=== PATIENT | female | born 1930 | race Caucasian/White ===

== ENCOUNTER 2016-11-20 08:21 | Emergency (ER) | payer MEDICARE, OTHER ==
[~2016-11-20] VITALS: Ht 157.5 cm; Wt 45.4 kg
[~2016-11-20 08:21] MED LIST: ASPI81TA2 PO; ATOR40TA PO; DIGO125T PO; ESTR1.5T5 PO; LEVO50TA8 PO; METO50TA7 PO; POTA20LI4 PO
[2016-11-20 09:41] VITALS: BP 117/72
== END 2016-11-20 09:42 | disposition home or self-care (01) ==
LOC: ER 08:23
DX: S09.90XA Unspecified injury of head, initial encounter (principal); S70.01XA Contusion of right hip, initial encounter; S00.03XA Contusion of scalp, initial encounter; E78.00 Pure hypercholesterolemia, unspecified; I10 Essential (primary) hypertension; R51 Headache; Z79.82 Long term (current) use of aspirin; Z95.0 Presence of cardiac pacemaker; W01.198A Fall on same level from slipping, tripping and stumbling with subsequent striking against other object, initial encounter; Y93.89 Activity, other specified; Y92.89 Other specified places as the place of occurrence of the external cause; Y99.9 Unspecified external cause status
CPT/HCPCS: 70450; 72125; 73502; 99284; A4606; 73510-TC; Z7610

== ENCOUNTER 2017-10-07 15:08 | Inpatient (IN) | payer MEDICARE, OTHER ==
[~2017-10-07] VITALS: Ht 167.6 cm; Wt 48.1 kg
--- NOTE | 2017-10-07 15:20 | NUR ---
BBRA 860 FROM HOME TRIP AND FALL BACKWARD AND HIT THE BACK OF THE HEAD NOTED WITH LACERATION WITH ACTIVE MINIMAL BLEEDING. NOTED L ELBOW ABRASIONS. PT AAOX3. SEEN BY MD FOR EVAL. VSS. SAFETY AND COMFORT MEASURES PROVIDED. WILL MONITOR.
--- NOTE | 2017-10-07 15:50 | NUR ---
IV ACCESS STARTED. BLOOD DRAWN FOR LABS.
[2017-10-07 16:05] LABS: BASOPHILS # (AUTO) 0.2 /CMM (0.0-0.2); EOSINOPHILS # (AUTO) 0.1 /CMM (0.0-0.7); EOSINOPHILS % (AUTO) 0.8 % (0.0-6.0); HEMOGLOBIN 10.7 g/dL (11.5-14.8); LYMPHOCYTES # (AUTO) 0.7 /CMM (0.8-4.8); MEAN CORPUSCULAR HGB CONC 34 g/dl (31.0-36.0); RED BLOOD CELL COUNT(AUTO) 3.45 MIL/uL (4.0-5.2)
[2017-10-07 16:09] LABS: BASOPHILS % (AUTO) 2.6 % (0.0-2.0); HEMATOCRIT 32 % (33-45); LYMPHOCYTES % (AUTO) 10.5 % (20.0-44.0); MEAN CORPUSCULAR HEMOGLOBIN 31 PG (26.0-33.0); MEAN CORPUSCULAR VOLUME 93 fL (82-100); MONOCYTES # (AUTO) 0.6 /CMM (0.1-1.30); NEUTROPHILS # (AUTO) 5.4 /CMM (1.8-8.9); NEUTROPHILS % (AUTO) 78.1 % (43.0-81.0); PLATELET COUNT (AUTO) 66 /CMM (150-450); RDW COEFFICIENT OF VARIATION 15.9 (11.5-15.0)
[2017-10-07 16:15] LABS: CALCIUM, SERUM 9.2 mg/dL (8.5-10.1); CARBON DIOXIDE 30 mmol/L (21-32); CHLORIDE 103 mmol/L (98-107); CREATININE 0.9 mg/dL (0.6-1.3); GLUCOSE 113 mg/dL (74-106); POTASSIUM 4.3 mmol/L (3.5-5.1); SODIUM SERUM 137 mmol/L (136-145); UREA NITROGEN, BLOOD 19 mg/dL (7-18)
[2017-10-07 16:20] LABS: INR 0.95 (0.87-1.13); PROTHROMBIN TIME 9.9 SECS (9.5-12.7)
[2017-10-07 16:27] LABS: ALANINE AMINOTRANSFERASE 29 U/L (12-78); ALBUMIN 3.5 g/dL (3.4-5.0); ALKALINE PHOSPHATASE 66 U/L (46-116); ASPARTATE AMINOTRANSFERASE 38 U/L (15-37); B-TYPE NATRIURETIC PEPTIDE 5453 PG/ML (0-125); BILIRUBIN,DIRECT 0.3 mg/dL (0.0-0.2); BILIRUBIN,TOTAL 0.8 mg/dL (0.2-1.0); TOTAL PROTEIN, SERUM 6.3 g/dL (6.4-8.2)
--- NOTE | 2017-10-07 17:26 | NUR ---
[facility]
[2017-10-07] MEDS ORDERED: HYDROMORPHONE INJ 2 MG/ML DISP.SYRIN ONE (17:46)
[2017-10-07] MEDS ORDERED: ASPI325T2 PO (17:54)
[2017-10-07] MEDS ORDERED: [UNRECOGNIZED DRUG - CODE] PO (17:54)
[2017-10-07] MEDS ORDERED: CHOL100044 PO (17:54)
[2017-10-07] MEDS ORDERED: HYDROMORPHONE 1 MG/1 ML DISP.SYRIN IV ONE (18:00)
[2017-10-07] MEDS ORDERED: MAGNESIUM HYDROXIDE 30 ML UDC PO PRN (18:00)
[2017-10-07] MEDS ORDERED: ZOLPIDEM TARTRATE 5 MG TABLET PO PRN (18:00)
[2017-10-07] MEDS ORDERED: Z GUARD REMEDY 2 OZ OINT TP PRN (18:00)
[2017-10-07] MEDS ORDERED: ONDANSETRON HCL/PF 4 MG/2 ML VIAL IVP PRN (18:00)
[2017-10-07] MEDS ORDERED: ACETAMINOPHEN 325 MG TABLET PO PRN (18:00)
[2017-10-07] MEDS ORDERED: MAG HYDROX/AL HYDROX/SIMETH 30 ML UDC PO PRN (18:00)
[2017-10-07] MEDS ORDERED: ALBUTEROL FS 2.5 MG/3 ML VIAL.NEB NEB PRN (19:00)
[2017-10-07] MEDS ORDERED: HYDROMORPHONE 1 MG/1 ML DISP.SYRIN IV PRN (19:00)
[2017-10-07 19:05] LABS: BAND % (MANUAL) 5 % (0.0-5.0); LYMPHOCYTES % (MANUAL) 9 % (16-48); MONOCYTES % (MANUAL) 8 % (0-11.0); NEUTROPHILS % (MANUAL) 78 (42-76)
--- NOTE | 2017-10-07 20:12 | NUR ---
REPORT GIVEN TO YUSEF MONTOYA FOR ARTEMIO.
[2017-10-07 20:25] VITALS: BP 129/56
[2017-10-07 20:30] VITALS: BP 129/56
--- NOTE | 2017-10-07 20:30 | NUR ---
TELE/RN OPENING NOTES PT RECEIVED ON UNIT FROM ER VIA GUR[facility]AN[facility]. PLACED ON 2L O2 VIA NC, BREATHING EVEN AND UNLABORED. NO S/S OF DISTRESS NOTED. IV TO LAC DISLODGED. WILL RE-INSERT. A/OX2-3, ORIENTED PT TO ROOM AND CALL LIGHT. SIDE RAILS UPX2. BED IN LOW/LOCKED POSITION WITH CALL LIGHT IN REACH AND SIDE RAILS UPX2. WILL CONTINUE TO MONITOR Addendum: 10/07/17 at 2300 by ROLANDA GUNDERSON RN PLACED ON MIXER BLENDER, A-PACING WITH HR 70
[2017-10-07] MEDS ORDERED: CHOLECALCIFEROL 1,000 UNIT TABLET (VIT D3) ONE (21:34)
[2017-10-07] MEDS ORDERED: ASPIRIN 81 MG TAB.CHEW ONE (21:34)
--- NOTE | 2017-10-07 21:40 | NUR ---
TELE/RN NOTES SPOKE TO DR. BENÍTEZ, REGARDING CLARIFICATION OF ADMITTING ORDERS FROM DR. KELSEY. ASPIRIN 81MG AND ASPIRIN 325MG ORDERED FOR TONIGHT. DR. BENÍTEZ NOTIFIED OF ADMITTING DIAGNOSIS AND ORDERED TO ONLY GIVE ASPIRIN 81MG. NOTED AND CARRIED OUT.
[2017-10-07] MEDS ORDERED: ASPIRIN 325 MG TABLET PO SCH (22:00)
[2017-10-07] MEDS: CHOLECALCIFEROL 1,000 UNIT TABLET (VIT D3) PO SCH (22:22)
[2017-10-07] MEDS: ASPIRIN 81 MG TAB.CHEW PO SCH (22:22)
[2017-10-07] MEDS ORDERED: HYDROCODONE/APAP 5/325MG 1 EACH TABLET ONE (22:36)
[2017-10-07] MEDS: HYDROCODONE/APAP 5/325MG 1 EACH TABLET PO PRN (22:53)
[2017-10-08] VITALS (7 sets, daily range): BP systolic 90–124; BP diastolic 33–54
[2017-10-08 06:49] LABS: BASOPHILS % (AUTO) 0.9 % (0.0-2.0); EOSINOPHILS # (AUTO) 0.1 /CMM (0.0-0.7); EOSINOPHILS % (AUTO) 2.1 % (0.0-6.0); HEMATOCRIT 27 % (33-45); HEMOGLOBIN 8.6 g/dL (11.5-14.8); LYMPHOCYTES # (AUTO) 0.8 /CMM (0.8-4.8); LYMPHOCYTES % (AUTO) 20.2 % (20.0-44.0); MEAN CORPUSCULAR HEMOGLOBIN 30 PG (26.0-33.0); MEAN CORPUSCULAR HGB CONC 32 g/dl (31.0-36.0); MEAN CORPUSCULAR VOLUME 93 fL (82-100); MONOCYTES # (AUTO) 0.4 /CMM (0.1-1.30); MONOCYTES % (AUTO) 10.8 % (2.0-12.0); NEUTROPHILS # (AUTO) 2.6 /CMM (1.8-8.9); PLATELET COUNT (AUTO) 62 /CMM (150-450); RDW COEFFICIENT OF VARIATION 17.1 (11.5-15.0); RED BLOOD CELL COUNT(AUTO) 2.84 MIL/uL (4.0-5.2); WHITE BLOOD COUNT (AUTO) 3.9 K/uL (4.3-11.0)
--- NOTE | 2017-10-08 06:53 | NUR ---
TELE/RN CLOSING NOTES PT ASLEEP, EASILY AROUSABLE TO NAME. ON 2L O2 VIA NC, BREATHING EVEN AND UNLABORED. DENIES SOB OR PAIN. A/OX2-3. LCW PACEMAKER NOTED. ON TELE MONITOR SHOWING SR AT 60. IV TO RIGHT WRIST PATENT AND INTACT. BED IN LOW/LOCKED POSITION WITH CALL LIGHT IN REACH. SIDE RAILS UPX2. DAY SHIFT RN TO FOLLOW UP WITH MD TO CLARIFY ORDERS FOR ASA 81MG IN AM AND ASA 325MG IN PM. LAST NIGHT, PER DR. BENÍTEZ, ONLY TO GIVE ASA 81MG. OTHERWISE MADE PT COMFORTABLE DURING SHIFT. ALL NEEDS MET AND ATTENDED. TURNED/REPOSITIONED Q2H AND HEELS OFFLOADED. WILL ENDORSE TO AM SHIFT ARTEMIO.
[2017-10-08 07:11] LABS: CALCIUM, SERUM 8.5 mg/dL (8.5-10.1); CARBON DIOXIDE 27 mmol/L (21-32); CHLORIDE 106 mmol/L (98-107); CREATININE 0.7 mg/dL (0.6-1.3); GLUCOSE 89 mg/dL (74-106); MAGNESIUM 1.8 mg/dL (1.8-2.4); PHOSPHORUS 3.4 mg/dL (2.5-4.9); POTASSIUM 4.3 mmol/L (3.5-5.1); SODIUM SERUM 140 mmol/L (136-145); UREA NITROGEN, BLOOD 18 mg/dL (7-18)
[2017-10-08 07:12] LABS: CHOLESTEROL 100 mg/dL (<200); HDL CHOLESTEROL 75 mg/dL (40-60); LDL 28 mg/dL (0-99); TRIGLYCERIDES 35 mg/dL (30-150)
[2017-10-08 07:25] LABS: IRON, SERUM 32 ug/dl (50-175); TOTAL IRON BINDING CAPACITY 307 ug/dl (250-450)
--- NOTE | 2017-10-08 07:40 | NUR ---
EMERGENCY NURSE OPENING RECEIVED PATIENT A/XO4 DENIES SOB, DIFFICULTY BREATHING OR PAIN. PATIENT APPEARS STABLE. TELE NSR 70'S WITH SOME AV PACING. PATIENT REQUESTED IVF TO BE REMOVED FOR MORNING HYGIENE. PATIENT CURRENTLY ON 2LPM NC, WILL TITRATE TOLERATED. PATIENT STATES NO NEEDS AT THIS TIME. WILL ROUND Q2H OR LESS PER NEEDS Addendum: 10/08/17 at 0807 by JESSICA GARCIA RN INCORRECT PATIENT.
--- NOTE | 2017-10-08 07:40 | NUR ---
SENIOR PRODUCT INTEGRITY ENGINEER NOTES PATIENT AWAKE IN BED STATES SLIGHT PAIN TO SACRUM. WILL MONITOR BP AND ADMINISTER PAIN MEDICATIONS TOLERATED. PATIENT NEEDS IN REACH, STATES NO OTHER NEEDS AT THIS TIME. NO SOB, DIFFICULTY BREATHING. BILAT LEGS ELEVATED. PATIENT BED LOWERED, LOCKED, RAILS UPX3 FOR SAFETY AND WILL ROUND Q2H OR LESS PER NEEDS. BED ALARM ON. TELE NSR WITH SOME AV PACING
[2017-10-08] MEDS: LEVOTHYROXINE SODIUM 50 MCG TABLET PO SCH (08:46)
[2017-10-08] MEDS: ATORVASTATIN 40 MG TABLET PO SCH (08:46)
[2017-10-08] MEDS: DIGOXIN 0.125 MG TABLET PO SCH (08:47)
[2017-10-08] MEDS: ASPIRIN 81 MG TAB.CHEW PO SCH (08:48)
--- NOTE | 2017-10-08 08:49 | NUR ---
SUPPLEMENTAL MANAGER NOTES PATIENT REFUSING ASA STATES SHE TAKES 325 AT NIGHT. WILL F/U WITH
[2017-10-08] MEDS: METOPROLOL SUCCINATE 50 MG TAB.SR.24H PO SCH (08:50)
--- NOTE | 2017-10-08 08:52 | NUR ---
DIVORCE MEDIATOR NOTES PATIENT AWARE WE DO NOT HAVE ESTROPIPATE AND IF SHE WANTS CONTINUED SHE WILL HAVE TO PROVIDE. PATIENT AWARE
[2017-10-08 10:40] LABS: BAND % (MANUAL) 8 % (0.0-5.0); EOSINOPHILS % (MANUAL) 3 % (0-4); LYMPHOCYTES % (MANUAL) 24 % (16-48); MONOCYTES % (MANUAL) 12 % (0-11.0); NEUTROPHILS % (MANUAL) 53 (42-76)
[2017-10-08 12:14] LABS: THYROID STIMULATING HORMONE 1.92 uIU/mL (0.358-3.74)
[2017-10-08] MEDS: IV NS 0.9% 1,000 ML IV PRN (12:16)
[2017-10-08] MEDS: SOD FERRIC GLUC 125 MG in IV NS 0.9% 100 ML IV SCH (15:00)
--- NOTE | 2017-10-08 19:05 | NUR ---
CLAIM REVIEW MEDICAL DIRECTOR NOTES BLADDER SCAN COMPLETE PATIENT VERY LITTLE URINE OUTPUT AND TENDER ABDOMEN ON PALPATION. FIRM ABDOMEN. PATIENT SHOWING OVER 900ML IN BLADDER. MESSAGE TO DR KELSEY FOR MALIN CATH ORDER
--- NOTE | 2017-10-08 19:16 | NUR ---
JUNIOR MARKETING ASSOCIATE NOTES MESSAGE TO PUBLIC WORKS TECHNICIAN MD BENÍTEZ FOR [facility]
--- NOTE | 2017-10-08 19:35 | NUR ---
telephone order dispatcher closing notes Patient stated that she urinated. Bladder scan showed 800 ml. Per doctor Cleo insert kumar catheter. All due meds given. All needs are met
--- NOTE | 2017-10-08 19:41 | NUR ---
telecom assistant general note Patient stated that she has laceration on her head. 2 RN's assessed her head, no laceration, redness noted.
[2017-10-08] MEDS ORDERED: LACTOSE-FREE FOOD 237 ML LIQUID PO SCH (20:00)
--- NOTE | 2017-10-08 20:00 | NUR ---
EMERGENCY MEDICAL SERVICES COORDINATOR NOTES, PATIENT IN BED ALERT AND ORIENTED ABLE TO COMMUNICATE NEEDS AND CONCERNS, EXPLAIN TO PATIENT THAT SHE HAS A NEW ORDER FOR INSERT MALIN CATERER DUE TO THE POOR URINE OUTPUT, PATIENT VERBALIZED UNDERSTANDING, UPON ASSESSMENT DONE PATIENT NOTED ONE DIAPER WET, DENIES PAIN WHILE PALPATION OF BLADDER, SLIGHTLY DISTENTION NOTED. AFTER EXPLANATION AND EDMOND CARE, PROVIDED, USING ASEPTIC TECHNIQUE MALIN CATHETER 16F AND INSERTED, UPON INSERTION AND CONTINUOUS DRAINING 400ML WAS OBTAINED. URINE NOTED DARK YELLOW, NO HEMATURIA NOTED AT THIS TIME, SOME SEDIMENTATION NOTED, PATIENT TOLERATED PROCEDURE WELL, DENIES PAIN, WILL CONTINUE TO MONITOR CLOSELY, PLACE BED LOCKED AND IN LOWEST POSITION, CALL LIGHT W/I REACH.
[2017-10-08] MEDS: VITAMIN E 400 UNIT CAPSULE PO SCH (21:12)
[2017-10-08] MEDS: CHOLECALCIFEROL 1,000 UNIT TABLET (VIT D3) PO SCH (21:13)
[2017-10-08] MEDS: HYDROCODONE/APAP 5/325MG 1 EACH TABLET PO PRN (22:58)
[2017-10-09 04:00] VITALS: BP 114/40
[2017-10-09] MEDS: IV NS 0.9% 1,000 ML IV PRN ×2 (04:48→20:46)
[2017-10-09 07:02] LABS: BASOPHILS # (AUTO) 0.1 /CMM (0.0-0.2); BASOPHILS % (AUTO) 1.4 % (0.0-2.0); EOSINOPHILS # (AUTO) 0.1 /CMM (0.0-0.7); EOSINOPHILS % (AUTO) 1.6 % (0.0-6.0); HEMATOCRIT 25 % (33-45); HEMOGLOBIN 8.3 g/dL (11.5-14.8); LYMPHOCYTES # (AUTO) 0.8 /CMM (0.8-4.8); LYMPHOCYTES % (AUTO) 20.7 % (20.0-44.0); MEAN CORPUSCULAR HEMOGLOBIN 31 PG (26.0-33.0); MEAN CORPUSCULAR HGB CONC 33 g/dl (31.0-36.0); MEAN CORPUSCULAR VOLUME 93 fL (82-100); MONOCYTES # (AUTO) 0.6 /CMM (0.1-1.30); MONOCYTES % (AUTO) 13.7 % (2.0-12.0); NEUTROPHILS # (AUTO) 2.5 /CMM (1.8-8.9); NEUTROPHILS % (AUTO) 62.6 % (43.0-81.0); PLATELET COUNT (AUTO) 54 /CMM (150-450); RDW COEFFICIENT OF VARIATION 17.2 (11.5-15.0); RED BLOOD CELL COUNT(AUTO) 2.68 MIL/uL (4.0-5.2)
[2017-10-09 07:23] LABS: ALANINE AMINOTRANSFERASE 18 U/L (12-78); ALBUMIN 2.5 g/dL (3.4-5.0); ALKALINE PHOSPHATASE 43 U/L (46-116); ASPARTATE AMINOTRANSFERASE 26 U/L (15-37); BILIRUBIN,TOTAL 0.9 mg/dL (0.2-1.0); CALCIUM, SERUM 8.4 mg/dL (8.5-10.1); CARBON DIOXIDE 29 mmol/L (21-32); CHLORIDE 106 mmol/L (98-107); CREATININE 0.9 mg/dL (0.6-1.3); GLUCOSE 84 mg/dL (74-106); MAGNESIUM 1.8 mg/dL (1.8-2.4); PHOSPHORUS 3.3 mg/dL (2.5-4.9); POTASSIUM 3.7 mmol/L (3.5-5.1); SODIUM SERUM 140 mmol/L (136-145); TOTAL PROTEIN, SERUM 4.7 g/dL (6.4-8.2); TROPONIN I 0.083 ng/mL (0.00-0.056); UREA NITROGEN, BLOOD 14 mg/dL (7-18)
--- NOTE | 2017-10-09 07:37 | NUR ---
BRASS BURNISHER NOTE RECEIVED PATIENT IN THE BED, ASLEEP. PATIENT IS RESTING COMFORTABLY. NO S/S OF DISTRESS NOTED. WILL CONTINUE TO MONITOR
[2017-10-09 08:00] VITALS: BP 138/55
[2017-10-09] MEDS: LEVOTHYROXINE SODIUM 50 MCG TABLET PO SCH (08:01)
[2017-10-09] MEDS: DIGOXIN 0.125 MG TABLET PO SCH (08:11)
[2017-10-09] MEDS: ATORVASTATIN 40 MG TABLET PO SCH (08:11)
[2017-10-09] MEDS: ASPIRIN 81 MG TAB.CHEW PO SCH (08:12)
[2017-10-09] MEDS: METOPROLOL SUCCINATE 50 MG TAB.SR.24H PO SCH (08:52)
--- NOTE | 2017-10-09 09:11 | NUR ---
NUCLEAR REACTOR ENGINEER NOTES PAGED DR BANKS REGARDING TROPONIN LEVEL, AWAITING CALL BACK
--- NOTE | 2017-10-09 09:14 | NUR ---
METAL SPRAYER PRODUCTION NOTES SPOKE TO DR BANKS IN PERSON, NOTIFIED REGARDING TROPONIN LEVEL OF 0.083, NO NEW ORDERS GIVEN
[2017-10-09] MEDS ORDERED: HYDROGEL DRESSING 90 GM TUBE TP PRN (09:30)
--- NOTE | 2017-10-09 09:35 | NUR ---
WOUND CARE CONSULT: PT PRESENTS WITH STAGE 2 ULCER TO SACRUM, MULTIPLE SCARS, BRUISES AND DRY ABRASIONS, PRESENT ON ADMISSION. PT IS VERY THIN AND BONY. PT ABLE TO ASSIST WITH TURNING AND REPOSITIONING IN BED. RECOMMEND HARITHA ISOFLEX LOW AIRLOSS BED WHICH WILL BE PLACED WHEN AVAILABLE. ALL SKIN PROTECTION MEASURES IN PLACE AND DISCUSSED WITH NURSING STAFF. WILL SEE PRN. CHAU IN AGREEMENT WITH PLAN OF CARE. Addendum: 10/09/17 at 0937 by JANAE ELENA WNDNU Amended: Links added.
--- NOTE | 2017-10-09 09:38 | NUR ---
MS RN NOTES PATIENT INDEPENDENT TURNING HOWEVER WILL NOT INITIATE TURNING. ATTEMPTED TO OFFLOAD PATIENT SACRUM WITH PILLOWS AND PATIENT REFUSING. STATES SHE WILL TURN AND OFFLOAD HERSELF. EDUCATED PATIENT ON SKIN CARE AND IMPORTANCE OF TURNING AND OFFLOADING PATIENT HAS MANY BONY PROMINENCES. PATIENT STATES UNDERSTANDING. WILL CONTINUE TO MONITOR AND REMIND PATIENT OF TURNING Q2H
--- NOTE | 2017-10-09 09:45 | NUR ---
MS RN NOTE NOTIFIED [facility] WE DO NOT HAVE BOOST. THEY WILL SEND
[2017-10-09] MEDS ORDERED: BOOST FOOD- BERRY 237 ML BOX PO SCH (10:30)
[2017-10-09 10:37] LABS: BAND % (MANUAL) 4 % (0.0-5.0); LYMPHOCYTES % (MANUAL) 5 % (16-48); MONOCYTES % (MANUAL) 10 % (0-11.0); NEUTROPHILS % (MANUAL) 81 (42-76)
[2017-10-09] MEDS: HYDROGEL DRESSING 90 GM TUBE TP SCH (11:10)
[2017-10-09] MEDS: POTASSIUM CHLORIDE 20 MEQ TAB.PRT.SR PO SCH ×2 (11:12→12:38)
--- NOTE | 2017-10-09 13:02 | NUR ---
MS RN NOTES CALLED [facility] TO NOTIFY OF CONSULT
[2017-10-09] MEDS: BOOST PLUS FOOD-VANILLA 237 ML BOX PO SCH ×2 (14:14→20:09)
[2017-10-09] MEDS: SOD FERRIC GLUC 125 MG in IV NS 0.9% 100 ML IV SCH (14:14)
[2017-10-09 16:00] VITALS: BP 119/52
[2017-10-09 16:25] VITALS: BP 119/52
[2017-10-09] MEDS ORDERED: FLUORESCEIN SODIUM OPHTH 1 EA STRIP ONE (16:28)
[2017-10-09] MEDS ORDERED: TETRACAINE HCL/PF 0.5% UD 2 ML BOTTLE ONE (16:28)
--- NOTE | 2017-10-09 16:59 | NUR ---
MS RN NOTES PER ZANDER PUGH PATIENT IS TO HAVE DR BRANCH CONSULT. PER DR LAURE REAL TO CONSULT. CALLED AND NOTIFIED OF CONSULT.
[2017-10-09] MEDS: HYDROCODONE/APAP 5/325MG 1 EACH TABLET PO PRN (17:18)
--- NOTE | 2017-10-09 17:29 | NUR ---
MS RN NOTES PATIENT ALLOWED US TO MOVE HER TO THE ISOFLEX BED AT THIS TIME.
--- NOTE | 2017-10-09 18:49 | NUR ---
SILVER BRAZER NOTES RECEIVED PATIENT IN THE BED, BED IN THE LOW POSITION, BED ALARM IS ON, ALL MEDS DUE GIVEN, ALL NEEDS MET, SAFETY PRECAUTIONS OBSERVED. PATIENT IS STABLE, WILL ENDORSE REPORT TO UPCOMING RN
[2017-10-09 20:00] VITALS: BP 136/58
[2017-10-09] MEDS: CHOLECALCIFEROL 1,000 UNIT TABLET (VIT D3) PO SCH (21:14)
[2017-10-09] MEDS: VITAMIN E 400 UNIT CAPSULE PO SCH (22:00)
[2017-10-10 04:00] VITALS: BP_SYST 129; BP_SYST 136; BP_DIAS 55; BP_DIAS 58
--- NOTE | 2017-10-10 07:00 | NUR ---
RN INITIAL NOTES: PATIENT ALERT ORIENTEDX3. NONLABORED BREATHING NOTED ON ROOM AIR. NO SIGNS OF DISTRESS. PATIENT DENIES PAIN AT THE MOMENT. IV SITE PATENT AND INTACT. BED IN LOWEST LOCKED POSITION. CALL LIGHT WITHIN REACH. ENDORSED TO NEXT SHIFT.
[2017-10-10 07:42] LABS: EOSINOPHILS # (AUTO) 0.1 /CMM (0.0-0.7); EOSINOPHILS % (AUTO) 2.5 % (0.0-6.0); HEMATOCRIT 26 % (33-45); HEMOGLOBIN 8.6 g/dL (11.5-14.8); LYMPHOCYTES # (AUTO) 0.7 /CMM (0.8-4.8); MEAN CORPUSCULAR HEMOGLOBIN 31 PG (26.0-33.0); MEAN CORPUSCULAR HGB CONC 33 g/dl (31.0-36.0); MEAN CORPUSCULAR VOLUME 93 fL (82-100); MONOCYTES # (AUTO) 0.5 /CMM (0.1-1.30); MONOCYTES % (AUTO) 11.1 % (2.0-12.0); NEUTROPHILS # (AUTO) 3.1 /CMM (1.8-8.9); NEUTROPHILS % (AUTO) 70.4 % (43.0-81.0); PLATELET COUNT (AUTO) 62 /CMM (150-450); RDW COEFFICIENT OF VARIATION 16.5 (11.5-15.0); RED BLOOD CELL COUNT(AUTO) 2.82 MIL/uL (4.0-5.2); WHITE BLOOD COUNT (AUTO) 4.4 K/uL (4.3-11.0)
[2017-10-10 07:54] LABS: ALANINE AMINOTRANSFERASE 22 U/L (12-78); ALBUMIN 2.5 g/dL (3.4-5.0); ALKALINE PHOSPHATASE 47 U/L (46-116); ASPARTATE AMINOTRANSFERASE 32 U/L (15-37); BILIRUBIN,TOTAL 0.9 mg/dL (0.2-1.0); CALCIUM, SERUM 8.3 mg/dL (8.5-10.1); CARBON DIOXIDE 26 mmol/L (21-32); CHLORIDE 106 mmol/L (98-107); CREATININE 0.7 mg/dL (0.6-1.3); GLUCOSE 83 mg/dL (74-106); MAGNESIUM 1.6 mg/dL (1.8-2.4); PHOSPHORUS 2.7 mg/dL (2.5-4.9); POTASSIUM 3.5 mmol/L (3.5-5.1); SODIUM SERUM 138 mmol/L (136-145); TOTAL PROTEIN, SERUM 5.1 g/dL (6.4-8.2); UREA NITROGEN, BLOOD 11 mg/dL (7-18)
[2017-10-10 08:00] VITALS: BP 135/57
[2017-10-10] MEDS: LEVOTHYROXINE SODIUM 50 MCG TABLET PO SCH (08:19)
[2017-10-10] MEDS: ASPIRIN 81 MG TAB.CHEW PO SCH (08:20)
[2017-10-10] MEDS: ATORVASTATIN 40 MG TABLET PO SCH (08:21)
[2017-10-10] MEDS: DIGOXIN 0.125 MG TABLET PO SCH (08:23)
[2017-10-10] MEDS: METOPROLOL SUCCINATE 50 MG TAB.SR.24H PO SCH (09:00)
[2017-10-10] MEDS: IV NS 0.9% 1,000 ML IV PRN (10:46)
[2017-10-10] MEDS: Magnesium 1GM/D5W 100ML PREMIX 100 ML IV SCH ×2 (11:39→12:51)
[2017-10-10 11:42] LABS: LYMPHOCYTES % (MANUAL) 17 % (16-48); MONOCYTES % (MANUAL) 4 % (0-11.0); NEUTROPHILS % (MANUAL) 79 (42-76)
[2017-10-10] MEDS: BOOST PLUS FOOD-VANILLA 237 ML BOX PO SCH ×3 (12:53→20:00)
[2017-10-10] MEDS: HYDROGEL DRESSING 90 GM TUBE TP SCH (14:16)
--- NOTE | 2017-10-10 14:52 | NUR ---
FAXED ORDER AND FACE SHEET TO [facility] AT [phone],TEL #[phone].
[2017-10-10] MEDS: SOD FERRIC GLUC 125 MG in IV NS 0.9% 100 ML IV SCH (15:42)
[2017-10-10 16:00] VITALS: BP 126/45
[2017-10-10] MEDS: ESTROPIPATE 1.25 MG PO SCH (16:00)
--- NOTE | 2017-10-10 19:34 | NUR ---
RN NOTES: PATIENT ALERT ORIENTEDX3. NONLABORED BREATHING NOTED ON ROOM AIR. NO SIGNS OF DISTRESS. PATIENT DENIES PAIN AT THE MOMENT. SLIGHT REDNESS NOTED ON IV SITE. PATIENT COMPLAINS OF PAIN. PATIENT EDUCATED ON PHYSIOLOGY. PATIENT REFUSING TO HAVE IV REMOVED. PATIENT REFUSING TO HAVE ANOTHER IV RESTARTED. PATIENT OFFERED A HEATING PACK. BENEFITS AND RISKS EXPLAINED MANY TIMES. PATIENT STILL REFUSING. BED IN LOWEST LOCKED POSITION. CALL LIGHT WITHIN REACH. ENDORSED TO NEXT SHIFT.
[2017-10-10 20:00] VITALS: BP 158/72
--- NOTE | 2017-10-10 20:00 | NUR ---
RN NOTES, PIV LINE STARTED USING ASEPTIC TECHNIQUE AT TIMES, GOOD BLOOD RETURNED AND FLUSHED WITH NORMAL SALINE, NO S/S OF INFILTRATION NOTED AT THIS TIME, PATIENT TOLERATED PROCEDURE WELL, ATTACHED IVF ORDERED, WILL CONTINUE TO MONITOR CLOSELY.
[2017-10-10] MEDS: VITAMIN E 400 UNIT CAPSULE PO SCH (21:36)
[2017-10-10] MEDS: CHOLECALCIFEROL 1,000 UNIT TABLET (VIT D3) PO SCH (21:36)
[2017-10-10] MEDS: HYDROCODONE/APAP 5/325MG 1 EACH TABLET PO PRN (22:22)
--- NOTE | 2017-10-11 02:11 | NUR ---
RN INITIAL NOTES, UPON DOING ROUNDS, AND ASSESSED PATIENT NOTICED PATIENT WITH LEFT ARM SWOLLEN AT IV SITE, WITH REDNESS, TENDERNESS, AT SITE, SOFT TO TOUCH AND PAIN REPORTED UPON TOUCH. PIV LINE REMOVED, CATHETER INTACT, NO BLEEDING NOTED. ELEVATED EXTREMITY TO DECREASE SWOLLEN, CHARGE NURSE MADE AWARE. PATIENT A/O X3 ABLE TO COMMUNICATE NEEDS AND CONCERNS, BREATHING EVEN AND UNLABORED. NO S/S OF ANY ACUTE DISTRESS OR SOB, OFFERED PAIN MEDICATION AND PT REFUSED AT THIS TIME, WILL CONTINUE TO MONITOR CLOSELY, INFORMED PATIENT ABOUT THE NEED FOR ANOTHER IV LIVE, SINCE SHE IS IN IVF, PATIENT HESITATE ABOUT THIS, ENCOURAGE PATIENT EDUCATION PROVIDED REGARDING THE NEED FOR ANOTHER IV LINE. BED LOCKED AND IN LOWEST POSITION, CALL LIGHT W/I REACH.
[2017-10-11 04:06] VITALS: BP 130/60
[2017-10-11 05:00] VITALS: BP 130/60
[2017-10-11 06:44] LABS: CALCIUM, SERUM 8.3 mg/dL (8.5-10.1); CARBON DIOXIDE 28 mmol/L (21-32); CHLORIDE 109 mmol/L (98-107); CREATININE 0.7 mg/dL (0.6-1.3); GLUCOSE 91 mg/dL (74-106); POTASSIUM 4.3 mmol/L (3.5-5.1); SODIUM SERUM 142 mmol/L (136-145); UREA NITROGEN, BLOOD 10 mg/dL (7-18)
--- NOTE | 2017-10-11 07:36 | NUR ---
MS/RN OPENING NOTE PATIENT IN BED IN STABLE CONDITION. A/O X 3. NO SIGNS OF ACUTE DISTRESS. NO COMPLAIN OF PAIN OR DISCOMFORT. ALL NEEDS ATTENDED TO. CALL LIGHT WITHIN REACH. WILL CONTINUE TO MONITOR TO ENSURE SAFETY.
[2017-10-11 08:00] VITALS: BP 148/53
[2017-10-11] MEDS: ASPIRIN 81 MG TAB.CHEW PO SCH (08:26)
[2017-10-11] MEDS: METOPROLOL SUCCINATE 50 MG TAB.SR.24H PO SCH (08:27)
[2017-10-11] MEDS: BOOST PLUS FOOD-VANILLA 237 ML BOX PO SCH ×3 (08:27→20:00)
[2017-10-11] MEDS: ATORVASTATIN 40 MG TABLET PO SCH (08:27)
[2017-10-11] MEDS: DIGOXIN 0.125 MG TABLET PO SCH (08:27)
[2017-10-11] MEDS: LEVOTHYROXINE SODIUM 50 MCG TABLET PO SCH (08:27)
[2017-10-11] MEDS: HYDROGEL DRESSING 90 GM TUBE TP SCH (08:28)
[2017-10-11] MEDS: IV NS 0.9% 1,000 ML IV PRN (09:12)
[2017-10-11] MEDS: ESTROPIPATE 1.25 MG PO SCH (09:42)
[2017-10-11 12:19] VITALS: BP 148/53
[2017-10-11] MEDS: SOD FERRIC GLUC 125 MG in IV NS 0.9% 100 ML IV SCH (14:10)
[2017-10-11 16:00] VITALS: BP 151/56
--- NOTE | 2017-10-11 17:00 | NUR ---
MS/RN SEEN BY STRUCTURAL STEEL SHOP SUPERVISOR JONES SEEN BY STRUCTURAL STEEL SHOP SUPERVISOR JONES MILLAN WITH ORDERS TO DC IV FLUIDS.
--- NOTE | 2017-10-11 18:26 | NUR ---
MS/RN CLOSING NOTE PATIENT IN BED IN STABLE CONDITION. A/O X 3. NO SIGNS OF ACUTE DISTRESS. NO COMPLAIN OF PAIN OR DISCOMFORT. PATIENT REFUSED TO BE CHANGED, REPOSITION OR WOUND TREATMENT TO SACRAL. OFFERED X 3 WITH RISK/BENEFITS EXPLAINED, CONTINUE TO REFUSE, PER PATIENT VERBALIZED, "I AM LEAVING TOMORROW SO I WILL GET CHANGE TOMORROW." ALL NEEDS ATTENDED TO AT THIS TIME. CALL LIGHT WITHIN REACH. WILL ENDORSE TO NEXT SHIFT FOR CONTINUITY OF CARE.
--- NOTE | 2017-10-11 19:05 | NUR ---
RN OPENING NOTES RECEIVED REPORT FROM AM RN. PATIENT A/A/O X3, ABLE TO MAKE NEEDS KNOWN. BREATHING EVEN & UNLABORED, ON O2 2L VIA NC. DENIES SOB OR DIFFICULTY BREATHING. PULSES PRESENT. LEFT HAND IV INTACT & FLUSHING WELL W/ DRESSING CDI, SALINE LOCKED. DENIES ANY PAIN OR DISCOMFORT @ THIS TIME. SAFETY MEASURES IN PLACE W/ SIDE RAILS UP, BED LOCKED & IN LOWEST POSITION, BED ALARM ON & CALL LIGHT WITHIN REACH. WILL CONTINUE TO MONITOR.
[2017-10-11 20:00] VITALS: BP 163/65
--- NOTE | 2017-10-11 21:00 | NUR ---
RN NOTES OFFERED TO APPLY BACK BRACE ON PATIENT BUT PATIENT REFUSED. STATES, "IT DOESN'T HELP". WILL TRY TO OFFER AGAIN LATER.
[2017-10-11] MEDS: CHOLECALCIFEROL 1,000 UNIT TABLET (VIT D3) PO SCH (21:07)
[2017-10-11] MEDS: VITAMIN E 400 UNIT CAPSULE PO SCH (21:07)
[2017-10-12 04:00] VITALS: BP 167/76
[2017-10-12] MEDS: hydrALAZINE HCL 25 MG TABLET PO PRN ×2 (04:35→14:05)
--- NOTE | 2017-10-12 07:15 | NUR ---
RN NOTES RECEIVED PT ON BED, A/Ox3, WITH PERIODS OF CONFUSION ,ABLE TO MAKE NEEDS KNOWN.RESPIRATION EVEN AND UNLABORED, ON 2L O2 N/C , ON O2 2L N/C . LEFT HAND IV INTACT & FLUSHING WELL, SALINE LOCKED. JOSE ANY DISTRESS , SIDE RAILS UP x3, CALL LIGHT WITHIN EASY REACH, BED ALARM ON FOR PT SAFETY , BED LOCKED & IN LOWEST POSITION, WILL CONTINUE TO MONITOR.
[2017-10-12 08:00] VITALS: BP 163/67
[2017-10-12] MEDS: DIGOXIN 0.125 MG TABLET PO SCH (08:06)
[2017-10-12] MEDS: METOPROLOL SUCCINATE 50 MG TAB.SR.24H PO SCH (08:06)
[2017-10-12] MEDS: ASPIRIN 81 MG TAB.CHEW PO SCH (08:06)
[2017-10-12] MEDS: ATORVASTATIN 40 MG TABLET PO SCH (08:06)
[2017-10-12] MEDS: LEVOTHYROXINE SODIUM 50 MCG TABLET PO SCH (08:06)
[2017-10-12] MEDS: HYDROGEL DRESSING 90 GM TUBE TP SCH (08:10)
[2017-10-12] MEDS: ESTROPIPATE 1.25 MG PO SCH (09:06)
[2017-10-12] MEDS: BOOST PLUS FOOD-VANILLA 237 ML BOX PO SCH ×2 (10:00→14:00)
[2017-10-12 12:00] VITALS: BP 161/69
--- NOTE | 2017-10-12 13:00 | NUR ---
RN NOTES REPORT GIVEN TO DAQUAN HOLBROOK AT [facility] .
[2017-10-12 14:05] VITALS: BP 161/69
[2017-10-12] MEDS: SOD FERRIC GLUC 125 MG in IV NS 0.9% 100 ML IV SCH (14:45)
--- NOTE | 2017-10-12 15:18 | NUR ---
RN NOTES PT STABLE , REPORT GIVEN TO EMT PERSONAL ON THE FLOOR , H/L D/SUHA, DISCHARGE SKIN PHOTO TAKEN . BELONGING LIST SIGNED PT LEFT THE FLOOR TO REHAB ACCOMPANIED BY EMT PERSONAL IN STABLE CONDITION .
[2017-10-13] MEDS ORDERED: MULTIVITAMINS,THERAGRAN 1 UDTAB TABLET PO SCH (09:00)
[2017-10-13] MEDS ORDERED: ASCORBIC ACID 500 MG TABLET PO SCH (09:00)
== END 2017-10-12 15:26 | DRG 551 ==
LOC: ER 15:10 → TELE1 20:29 → MEDSG1 10-08 22:43
PROVIDERS: ADMIT Internal Medicine; ATTEND Internal Medicine
DX: S32.110A Nondisplaced Zone I fracture of sacrum, initial encounter for closed fracture (principal); N17.0 Acute kidney failure with tubular necrosis; I21.A1 Myocardial infarction type 2; E43 Unspecified severe protein-calorie malnutrition; D63.8 Anemia in other chronic diseases classified elsewhere; I48.91 Unspecified atrial fibrillation; E88.09 Other disorders of plasma-protein metabolism, not elsewhere classified; J44.9 Chronic obstructive pulmonary disease, unspecified; R64 Cachexia; Z68.1 Body mass index [BMI] 19.9 or less, adult; R55 Syncope and collapse; E03.9 Hypothyroidism, unspecified; W18.30XA Fall on same level, unspecified, initial encounter; Y93.9 Activity, unspecified; Y92.89 Other specified places as the place of occurrence of the external cause; E78.5 Hyperlipidemia, unspecified; I25.10 Atherosclerotic heart disease of native coronary artery without angina pectoris; M19.90 Unspecified osteoarthritis, unspecified site; Z95.0 Presence of cardiac pacemaker; Z87.891 Personal history of nicotine dependence; Z96.643 Presence of artificial hip joint, bilateral; M51.36 Other intervertebral disc degeneration, lumbar region; I10 Essential (primary) hypertension; E61.1 Iron deficiency; M62.50 Muscle wasting and atrophy, not elsewhere classified, unspecified site
CPT/HCPCS: 36415; 70450-TC; 71010-TC; 72131-TC; 72170-TC; 72192-TC; 80048-TC; 80053-TC; 80061-TC; 80076-TC; 80162-TC; 82306; 83540-TC; 83735-TC; 83880; 84100-TC; 84439-TC; 84443-TC; 84484-TC; 85025-TC; 85730-TC; 87081-TC; 93307-TC; A4606; A6248; J1170; J2916; J3475; J7030; Z7610

== ENCOUNTER 2019-02-13 13:01 | Emergency (ER) | payer BC, MEDICARE ==
[~2019-02-13] VITALS: Ht 167.6 cm; Wt 43.1 kg
[~2019-02-13 13:01] MED LIST changes: -ASPI81TA2 PO; +CEPH-570 PO; +CHOL100044 PO; +METO50TA16 PO; -POTA20LI4 PO; +VITA400C71 PO
--- NOTE | 2019-02-13 13:40 | NUR ---
BIB RA 883 FROM HOME, FOUND BY CAREGIVER ON THE FLOOR,PATIENT CAN'T REMEMBER WHAT HAPPENED. PT AWAKE, CONFUSED. VSS. RR EVEN & UNLABORED. PLACED ON AWARD CLERK. PT SEEN & EVAL'D BY DR. CASTAÑEDA. WILL CONT TO MONITOR & AWNING CRAFTSPERSON @ BS.
--- NOTE | 2019-02-13 13:40 | NUR ---
Note varinderashish in EDM - 02/13/19 at 1444 by GRAZYNA TREY RA 883 FROM HOME, FOUND BY CAREGIVER ON THE FLOOR,PATIENT CAN'T REMEMBER WHAT HAPPENED. AAOX3, VSS. DENIES CP, SOB, DIZZINESS, N/V @ THIS TIME. PLACED ON NATURAL SCIENCE CURATOR. PT SEEN & EVAL'D BY DR. CASTAÑEDA. WILL CONT TO MONITOR & KILN REMOVER @ BS.
[2019-02-13 14:04] LABS: CALCIUM, SERUM 9.5 mg/dL (8.5-10.1); CARBON DIOXIDE 30 mmol/L (21-32); CHLORIDE 105 mmol/L (98-107); CREATININE 0.9 mg/dL (0.6-1.3); GLUCOSE 119 mg/dL (74-106); POTASSIUM 4.6 mmol/L (3.5-5.1); SODIUM SERUM 143 mmol/L (136-145); UREA NITROGEN, BLOOD 33 mg/dL (7-18)
[2019-02-13 14:09] LABS: ALANINE AMINOTRANSFERASE 33 U/L (12-78); ALBUMIN 3.9 g/dL (3.4-5.0); ALKALINE PHOSPHATASE 60 U/L (46-116); ASPARTATE AMINOTRANSFERASE 44 U/L (15-37); BILIRUBIN,DIRECT 0.3 mg/dL (0.0-0.2); BILIRUBIN,TOTAL 0.9 mg/dL (0.2-1.0); TOTAL PROTEIN, SERUM 6.8 g/dL (6.4-8.2)
[2019-02-13 14:11] LABS: BASOPHILS # (AUTO) 0.5 /CMM (0.0-0.2); EOSINOPHILS % (AUTO) 0.9 % (0.0-6.0); HEMATOCRIT 35 % (33-45); HEMOGLOBIN 11.4 g/dL (11.5-14.8); LYMPHOCYTES # (AUTO) 1.4 /CMM (0.8-4.8); LYMPHOCYTES % (AUTO) 20.4 % (20.0-44.0); MEAN CORPUSCULAR HGB CONC 33 g/dl (31.0-36.0); MEAN CORPUSCULAR VOLUME 94 fL (82-100); MONOCYTES # (AUTO) 0.4 /CMM (0.1-1.30); MONOCYTES % (AUTO) 6.2 % (2.0-12.0); NEUTROPHILS # (AUTO) 4.4 /CMM (1.8-8.9); NEUTROPHILS % (AUTO) 65.6 % (43.0-81.0); RED BLOOD CELL COUNT(AUTO) 3.73 MIL/uL (4.0-5.2); WHITE BLOOD COUNT (AUTO) 6.7 K/uL (4.3-11.0)
[2019-02-13 14:22] LABS: BASOPHILS % (AUTO) 6.9 % (0.0-2.0)
[2019-02-13 14:37] LABS: PLATELET COUNT (AUTO) 80 /CMM (150-450)
[2019-02-13 14:41] LABS: BAND % (MANUAL) 8 % (0.0-5.0); EOSINOPHILS % (MANUAL) 2 % (0-4); LYMPHOCYTES % (MANUAL) 22 % (16-48); MONOCYTES % (MANUAL) 6 % (0-11.0); NEUTROPHILS % (MANUAL) 62 (42-76)
[2019-02-13] MEDS ORDERED: VITA1TAB20 PO (15:03)
[2019-02-13] MEDS ORDERED: ASPI-1169 PO (15:03)
[2019-02-13] MEDS ORDERED: ESTR1TAB28 PO (15:03)
[2019-02-13 15:05] LABS: CREATINE KINASE, TOTAL 113 U/L (26-192)
[2019-02-13] MEDS ORDERED: TDAP [DIPH/PERTUSSIS/TET] 0.5 ML VIAL IM ONE (15:30)
[2019-02-13] MEDS ORDERED: IV NS 0.9% 1,000 ML BAG IV ONE (15:30)
[2019-02-13] MEDS ORDERED: LEVETIRACETAM (500MG) 500 MG in IV NS 0.9% 100 ML IV SCH (15:30)
--- NOTE | 2019-02-13 15:30 | NUR ---
ADDENDUM: Intravenous End Time Documentation: Keppra 1 gram IVPB: start time:1530 PM ; end time: 1630 PM : IV site: RFA PIV # 20 Port #1
--- NOTE | 2019-02-13 15:39 | NUR ---
GOT BED 310-2
[2019-02-13 15:40] VITALS: BP 118/76
--- NOTE | 2019-02-13 15:40 | NUR ---
PT AWAKE, EYES CLOSED, CONFUSED & HYPERVERBAL. ABLE TO MOVE ALL EXTREMITIES VOLUNTARILY. RR EVEN & UNLABORED, ON REPORTING DEVELOPER, PACING. NO FACIAL DROOP, NO VOMITING, NAD NOTED @ THIS TIME. WILL CONT TO MONITOR.
[2019-02-13] MEDS ORDERED: LIDOCAINE 1%-EPI 1:100,000 20 ML VIAL ONE (15:59)
[2019-02-13] MEDS ORDERED: LIDOCAINE 1%-EPI 1:100,000 50 ML VIAL IJ ONE (16:00)
--- NOTE | 2019-02-13 16:33 | NUR ---
CALL BACK FROM [facility] FROM [facility],ACCEPTED BY DR BARRIENTOS AT [facility],REPORT TO BE CALLED TO [phone],[facility] ETA 30 MINUTES
--- NOTE | 2019-02-13 17:20 | NUR ---
MYNOR BREWER AT BS FOR LAC REPAIR. PT STABLE NAD NOTED @ THIS TIME.
== END 2019-02-13 18:35 | disposition short-term general hospital (02) ==
LOC: ER 13:08
DX: S06.5X0A Traumatic subdural hemorrhage without loss of consciousness, initial encounter (principal); S01.81XA Laceration without foreign body of other part of head, initial encounter; S01.111A Laceration without foreign body of right eyelid and periocular area, initial encounter; S61.511A Laceration without foreign body of right wrist, initial encounter; E86.0 Dehydration; D64.9 Anemia, unspecified; D69.6 Thrombocytopenia, unspecified; R94.5 Abnormal results of liver function studies; I25.10 Atherosclerotic heart disease of native coronary artery without angina pectoris; I48.91 Unspecified atrial fibrillation; E03.9 Hypothyroidism, unspecified; I10 Essential (primary) hypertension; E78.00 Pure hypercholesterolemia, unspecified; Z90.89 Acquired absence of other organs; Z95.0 Presence of cardiac pacemaker; Z95.818 Presence of other cardiac implants and grafts; Z98.890 Other specified postprocedural states; Z90.710 Acquired absence of both cervix and uterus; Z79.82 Long term (current) use of aspirin; Z79.899 Other long term (current) drug therapy; W18.39XA Other fall on same level, initial encounter; Y93.89 Activity, other specified; Y92.89 Other specified places as the place of occurrence of the external cause; Y99.8 Other external cause status
CPT/HCPCS: 12052; 36415; 51702; 70450; 71045; 72125; 73110; 80048; 80076; 80162; 82550; 84484; 85025; 85730; 87081; 90471; 90715; 93005; 96365; 99291; A6402; J1953; J3490 ×2; J7030 ×2